=== PATIENT | female | born 1985 | race Two or more races ===

== ENCOUNTER 2024-09-06 06:45 | Day surgery (SDC) | payer MEDICAID, SELFPAY ==
--- NOTE | 2024-09-05 12:37 | EKG_ITS ---
[facility] Test Date: 2024-09-05 Pat Name: MAITE OLIVIAEIRODepartment: Room: - Gender: Female Technical Support Intern: SWATI : 1985 Requested By: Santy Alexis Order Number: [id number] Reading MD: Santy Alexis Measurements Intervals Ruffin Rate: 87 P: 53 OK: 123 QRS: 73 QRSD: 103 T: 25 QT: 345 QTc: 416 Interpretive Statements SINUS RHYTHM NONSPECIFIC T-WAVE ABNORMALITY No previous ECG available for comparison /[id number]/S0/[id number]
[2024-09-05 12:44] VITALS: BMI 31.6
[2024-09-05 14:53] LABS: Basophils % (Auto) 1 % (0-2.5); Eosinophils # (Auto) 0.1 Thou/mm3 (0.0-0.5); Eosinophils % (Auto) 1 % (0-10); Hematocrit 39.3 % (36.0-46.0); Hemoglobin 13.1 g/dL (12.0-16.0); Immature Granulocytes % (Auto) 0 % (0-0); Immature Granulocytes Auto 0.02 Thou/mm3 (0.00-0.00); Lymphocytes # (Auto) 2.5 Thou/mm3 (1.0-4.8); Lymphocytes % (Auto) 33 % (10-50); Mean Corpuscular HGB Conc 33.3 g/dl (31.0-37.0); Mean Corpuscular Hemoglobin 28.7 pg (25.0-35.0); Mean Corpuscular Volume 86 fL (80-100); Monocytes # (Auto) 0.6 Thou/mm3 (0.0-0.8); Monocytes % (Auto) 7 % (0-12); Neutrophils # (Auto) 4.5 Thou/mm3 (1.8-7.7); Neutrophils % (Auto) 59 % (37-80); Nucleated Red Blood Cell % 0 /100 WBC (0); Platelet Count 418 Thou/mm3 (140-440); RDW Standard Deviation 38.8 fL (36.4-46.3); Red Blood Count 4.57 Miln/mm3 (4.00-5.20); White Blood Count 7.7 Thou/mm3 (3.6-11.0)
[2024-09-05 15:00] LABS: Partial Thromboplastin Time 27.6 Seconds (22.0-36.0); Prothrombin Time 11.1 Seconds (9.0-12.2)
[2024-09-05 15:05] LABS: HCG,Qualitative Serum Negative
[2024-09-05 15:07] LABS: Anion Gap 10 (7-16); BUN/Creatinine Ratio 17 Ratio (12-20); Blood Urea Nitrogen 12 mg/dL (9-23); Calcium 9.4 mg/dL (8.3-10.6); Carbon Dioxide 26.4 mMol/L (20.0-31.0); Chloride 103 mMol/L (98-107); Creatinine (Component) 0.7 mg/dL (0.6-1.3); Estimated Creatinine Clearance 104.7 mL/min (>60); Glucose 89 mg/dL (74-106); Osmolality,Calculated 276 (275-295); Potassium 4.2 mMol/L (3.4-5.1); Sodium 139 mMol/L (136-145); eGFR > 60 See Note
[2024-09-06] VITALS (7 sets, daily range): BP systolic 98–112; BP diastolic 53–81; PULSE 75–95; RESP 14–16; TEMP 36.2–36.7; O2SAT 97–100; BMI 32.0
--- NOTE | 2024-09-06 07:36 | CHAP ---
Patient expressed gratitude for prayer before their procedure.
[2024-09-06] MEDS: RINGERS LACTATED 1000 ML 1,000 ML 20 ML IV (07:37)
[2024-09-06] MEDS: METOCLOPRAMIDE INJ 5 MG/ML VIAL 2 ML 10 MG IVP (09:07)
--- NOTE | 2024-09-06 10:22 | PD.SUROPNT ---
Date of Procedure 09/06/24 Pre Op Diagnosis 1. Torn medial meniscus right knee joint 2. Torn lateral meniscus 3. Degenerative joint disease changes 4. Synovitis with medial plica Post Op Diagnosis Same Procedure 1. Partial medial meniscectomy 2. Partial lateral meniscectomy 3. Chondroplasty 4. Partial synovectomy including excision plica Findings Refer dictation Procedure Description The patient was given general endotracheal anesthesia. Once satisfactory anesthesia was achieved, tourniquet was placed on right upper thigh. Following that the part was thoroughly prepped and draped. After using Esmarch the tourniquet pressure was raised to 350 mmHg. A skin incision was made proximal to lateral tibial plateau and arthroscope was introduced in the usual fashion. Another a skin incision was made in suprapatellar pouch area and outlet was established. The findings were noted as below. In suprapatellar pouch area significant synovial tissue inflammation was present. Medial plica was present as well. The undersurface of patella showed grade 2 chondromalacia. The anterior femoral condyle showed grade 3 chondromalacia. Soft tissue impingement was present. The patellar tracking was checked and found to be good. The medial compartment showed grade 3 chondromalacia for medial tibial plateau and medial femoral condyle. The medial meniscus showed degeneration and tear of the anterior horn. Another skin incision was made proximal to medial tibial plateau and a probe was introduced and findings were confirmed. The anterior cruciate ligament was intact. The anterior drawer test was performed and found to be good. With the help of probe all the findings were confirmed. The lateral compartment showed grade III chondromalacia lateral femoral condyle and tibial plateau. Lateral meniscus showed degeneration and complex tear of the body and anterior horn. A basket was introduced and trimming of the body of medial meniscus was done. A shaver was introduced and shaving of the anterior horn of medial meniscus was performed. Soft tissue impingement was shaved off. Chondroplasty of the medial femoral condyle and medial tibial plateau was performed. A basket was introduced and torn part of the body and anterior horn of lateral meniscus was excised. The shaving of the body and anterior horn of lateral meniscus was done. The chondroplasty anterior femoral condyle was performed. The soft tissue impingement was shaved off. A partial synovectomy including excision of plica was performed. Copious amount of irrigation was used to irrigate the knee joint. All the debris were removed. 3-0 Prolene was used to close the wound. About 20 mL of quarter percent Marcaine along with 10 mg of Duramorph was injected. Patient tolerated procedure well. Estimated blood loss was about 5 mL. Prognosis in this case is fair to good. Patient was taken to the recovery room in good condition. Anesthesia GETA Pathology / specimen None Estimated Blood Loss 1 Surgeon Santy Germain MD Surgical Staff Operation Date: 09/06/24 09:00 Case Staff Anesthesiologist: Avel Rangel
--- NOTE | 2024-09-06 10:29 | SUR.PHASEI ---
1029 Patient arrived to recovery resting comfortably in [facility], sleeping and able to arouse with verbal prompting then drifts back to sleep, on oxygen 6L via oxy mask, breathing unlabored, vital signs stable, denies pain, dressing intact to right knee; sutures, telfa, gauze, abd, webril, bias roll, silk tape, no bleeding noted, lung sounds clear upon auscultation, bialteral dorsalis pedis pulses present when palpated, patient has good circulation to right lower extremity; skin color normal for patient and warm to touch, report received from Dr. Rangel and Cristino DILL
[2024-09-06] MEDS: MORPHINE SULF INJ 10 MG/ML VIAL 3 MG IV (11:03)
[2024-09-06] MEDS: ACETAMINOPHEN IVPB 1,000 MG/100 ML VIAL 250 MG IV (11:04)
--- NOTE | 2024-09-06 11:44 | SUR.PHASEII ---
1144 Patient meets discharge criteria from recovery, awake and alert, breathing unlabored, vital signs stable, denies pain, dressing intact; no bleeding noted, patient eating jello; denies nausea, patient assisted with dressing into her clothing by this designer/writer, patient signed limited proficiency statement for her friend to cancer program coordinator to her, discharge instructions given to patient and patients friend, friend signed discharge instructions. Patient given all her belongings prior to discharge, transported, via wheelchair and left in a private vehicle.
--- NOTE | 2024-09-06 11:53 | ESHP_ITS ---
RE: MAITE GRULLON : 1985 DATE OF ADMISSION: 09/06/2024 The patient came to my office on 09/05/2024 for detailed preop history and physical examination. HISTORY OF PRESENT COMPLAINT: The patient presented to me with a history of pain, swelling, clicking, and locking of the right knee joint. This is going on for a long period of time. The patient graded intensity of pain to be 8-9/10. Her quality of life and activities of daily living is affected. The patient wants something need to be done about it. The patient stated that about a year back she turned and twisted her right knee and the patient felt a snap in the knee joint and since then she has this problem. PAST MEDICAL HISTORY: The patient has a history of depression, which was in nature. Thyroid problem. PAST SURGICAL HISTORY: Nil. DRUG HISTORY: The patient is on levothyroxine. PHYSICAL EXAMINATION: GENERAL: Normal built lady. VITAL SIGNS: Pulse 88 per minute, blood pressure 130/76. NECK: Soft. Supple. No mass felt. Trachea is centrally placed. CARDIOVASCULAR SYSTEM: First and second heart sounds are normal. No murmur heard. RESPIRATORY SYSTEM: Bilateral vesicular breath sounds. CHEST: Clear. ABDOMEN: Soft. No masses felt. Bowel sounds present. BREASTS: Not indicated in this case. RECTAL: The patient is advised to see the family physician for rectal examination. EXTREMITIES: Right knee examination revealed mild swelling. There is 2+ tenderness. Active range of motion from 0 to 115 degrees of flexion. Significant patellofemoral crepitus is present. Ana's test is positive. Drawer test and Vinod tests were negative. DIAGNOSTIC DATA: MRI scan confirmed torn meniscus with synovitis, increased joint fluid, and degenerative joint disease changes. Since the patient is symptomatic and is going on for over a year, an MRI scan confirmed torn meniscus. Therefore, right knee arthroscopy was discussed and advised. Risks of anesthesia were explained and that includes, but not limited to reaction to anesthetic agents, cardiac arrest or rarely it might be fatal. Risks with operation includes infection and if that happens, the patient may need further surgical procedure. Other risks include delayed healing, wound dehiscence, etc. Indeed, if one find grade 3 or grade 4 chondromalacia, there is a possibility that pain may continue and in that case, the patient may need further measurements. Detailed discussion took place. No guarantees given regarding outcome of the procedure and/or pain relief. Surgery booked for 09/06/2024. DT: 10:29:56 TT: 11:52:00 Ref: [id number] - TID: [id number]
== END 2024-09-06 11:44 | disposition home or self-care (01) ==
PROVIDERS: Anesthesiology; PCP Physician Assistant; Referring Provider Orthopaedic Surgery; Visit Provider Orthopaedic Surgery
PROC: (CPT 29870; principal; 2024-09-06 08:45)
DX: S83.241A Other tear of medial meniscus, current injury, right knee, initial encounter (principal); M65.90 Unspecified synovitis and tenosynovitis, unspecified site; M17.11 Unilateral primary osteoarthritis, right knee; Z01.810 Encounter for preprocedural cardiovascular examination; S83.281A Other tear of lateral meniscus, current injury, right knee, initial encounter
CPT/HCPCS: 29875; 29880; 36415; 80048; 84703; 85025; 85610; 85730; 93005; A4217; A4649; J0131; J2250; J2270; J2274; J2704; J2765; J3010; J3490; J7120